=== PATIENT | female | born 1990 | race Caucasian/White ===

== ENCOUNTER 2021-01-27 10:31 | Day surgery (SDC) | payer BC, OTHER ==
[2021-01-25 11:55] VITALS: BMI 24.0
[~2021-01-27 10:31] MED LIST: LACTATED RINGERS 1,000 ML IV SCH; LIDOCAINE 1% (10MG/ML) FOR IV START INTRADERMA PRN
[2021-01-27 11:05] VITALS: TEMP 98.6
[2021-01-27] MEDS ORDERED: fentaNYL (PF) 50 MCG/ML 2 ML AMP ONE (11:32)
[2021-01-27] MEDS ORDERED: PROPOFOL 10 MG/ML 20 ML VIAL IV ONE (11:32)
[2021-01-27] MEDS ORDERED: MIDAZOLAM 2 MG/2 ML VIAL ONE (11:32)
[2021-01-27] MEDS ORDERED: IV FLUID CONTINUATION 1,000 ML IV ONE (11:47)
--- NOTE | 2021-01-27 11:47 | P.PCN ---
Date of Procedure: 01/27/21 Procedure(s) Performed: BRIEF HISTORY: Patient is a 30-year-old white female scheduled for an elective colonoscopy as a part of evaluation of chronic diarrhea for the last 6 months duration. PROCEDURE PERFORMED: Colonoscopy with random biopsy PREOPERATIVE DIAGNOSIS: Chronic diarrhea of 6 months duration. IV sedation per Anesthesia. PROCEDURE: After informed consent was obtained, the patient, was brought into the endoscopy unit. IV sedation was administered by Anesthesia under continuous monitoring. Digital rectal examination was normal. Initially the Olympus CF-160 flexible video colonoscope was then inserted in the rectum, gradually advanced into the cecum without any difficulty. Careful examination was performed as the scope was gradually being withdrawn. Ileocecal valve and the appendiceal orifice were visualized and appeared normal. Prep was excellent. Terminal ileum was normal. Random biopsies were done from this area. Mucosa of the cecum, ascending colon, transverse colon, descending colon, sigmoid colon, and rectum appeared normal. Random biopsies were done from the ascending and descending colon to rule out microscopic/collagenous colitis Retroflexion was performed in the rectum and no lesions were seen. The patient tolerated the procedure well. IMPRESSION: Normal-appearing colon from rectum to cecum no evidence of colorectal neoplasia . RECOMMENDATIONS: Findings of this examination were discussed with the patient as well as a family. She was advised to follow with the biopsy and she'll be seen in office in 2-3 weeks..
[2021-01-27 12:06] VITALS: BP 117/67; PULSE 78; RESP 18
== END 2021-01-27 12:26 | disposition home or self-care (01) ==
LOC: ORWHC2ENDO 10:31
PROVIDERS: ATTEND Internal Medicine Gastroenterology
DX: K58.0 Irritable bowel syndrome with diarrhea (principal)
CPT/HCPCS: 81025; 88305; 45380; J2250; J3010; J2704

== ENCOUNTER → 2022-03-06 | Outpatient (CLI) | payer BC ==
--- NOTE | 2022-03-07 10:10 | CA ---
Transthoracic Echo Report Name: Lindy Cohen Age: 31 Gender: F : 1990 Exam Date: 03/06/2022 11:34 Exam Location: [facility] Ht (in): 64 Wt (lb): 140 Ordering Physician: Radha Rob MD Attending/Referring Phys: Radha Rob MD Desktop Administrator Christin Do RDCS Procedure CPT: Indications: R06.00 Dyspnea Cardiac Hx: Technical Quality: Good Contrast 1: Total Dose (mL): Contrast 2: Total Dose (mL): MEASUREMENTS (Male / Female) Normal Values 2D ECHO LV Diastolic Diameter PLAX 4.0 cm 4.2 - 5.9 / 3.9 - 5.3 cm LV Systolic Diameter PLAX 1.7 cm IVS Diastolic Thickness 0.8 cm 0.6 - 1.0 / 0.6 - 0.9 cm LVPW Diastolic Thickness 0.9 cm 0.6 - 1.0 / 0.6 - 0.9 cm LV Relative Wall Thickness 0.4 RV Internal Dim ED PLAX 2.0 cm LA Volume 36.1 cm??? 18 - 58 / 22 - 52 cm??? M-MODE Aortic Root Diameter MM 2.6 cm LA Systolic Diameter MM 1.6 cm LA Ao Ratio MM 0.6 MV E Point Septal Separation 0.5 cm AV Cusp Separation MM 1.7 cm DOPPLER AV Peak Velocity 131.0 cm/s AV Peak Gradient 6.9 mmHg MV Area PHT 4.9 cm??? MR Peak Velocity 137.9 cm/s MR Peak Gradient 7.6 mmHg Mitral E Point Velocity 121.9 cm/s Mitral A Point Velocity 50.2 cm/s Mitral E to A Ratio 2.4 MV Deceleration Time 156.3 ms MV E' Velocity 19.0 cm/s Mitral E to MV E' Ratio 6.4 TR Peak Velocity 117.2 cm/s TR Peak Gradient 5.5 mmHg Right Ventricular Systolic Press 10.5 mmHg FINDINGS Left Ventricle Normal Left ventricular size, wall thickness, systolic function with no obvious regional wall motion abnormalities. Normal Left ventricular diastolic filling pattern. Left ventricular ejection fraction is estimated at _55-60_ %. Right Ventricle The right ventricle is normal in size and function. Right Atrium The right atrium is normal in size. Left Atrium The left atrium is normal in size. Mitral Valve Structurally normal mitral valve without significant stenosis or prolapse. There is trace mitral regurgitation. Aortic Valve Structurally normal aortic valve without significant sclerosis or stenosis. There is no aortic regurgitation. Tricuspid Valve Structurally normal tricuspid valve without significant stenosis. Pulmonary artery systolic pressure is normal. Trace tricuspid regurgitation. Pulmonic Valve Structurally normal pulmonic valve without significant stenosis. There is no pulmonic regurgitation. Pericardium Normal pericardium without effusion. Aorta Normal aortic root dimension. CONCLUSIONS Technically difficult study for interpretation Normal left ventricular dimension and systolic function. Previewed by: Dr. Isiah Read MD (Electronically Signed) Final Date: 07 March 2022 10:08
== END | disposition home or self-care (01) ==
LOC: RADECHMAIN 11:30
PROVIDERS: ATTEND Family Medicine
DX: I07.1 Rheumatic tricuspid insufficiency (principal)
CPT/HCPCS: 93306